=== PATIENT | female | born 1950 | race Caucasian/White ===

== ENCOUNTER → 2017-08-08 | Outpatient (CLI) | payer MEDICARE ==
[2017-08-08 13:41] LABS: HEMOGLOBIN 13.5 g/dL (12.2-16.2); LYMPH # 0.9 K/mm3 (0.7-4.5); LYMPH % 17.3 % (10-50.0)
[2017-08-08 13:57] LABS: BUN 13 mg/dL (7-18)
[2017-08-08 14:13] LABS: GFR (ESTIMATED) 63 ML/MIN (59-)
== END ==
LOC: CARL-LAB 08:03
PROVIDERS: Internal Medicine Adolescent Medicine
DX: E55.9 Vitamin D deficiency, unspecified (principal); K76.0 Fatty (change of) liver, not elsewhere classified